=== PATIENT | male | born 1975 | race American Indian/Alaskan Native ===

== ENCOUNTER 2020-11-02 12:51 | Emergency (ER) | payer BC, SELFPAY ==
[2020-11-02 14:16] LABS: Basophils # (Auto) 0.1 K/mm3 (0.0-0.1); Basophils % (Auto) 1.9 % (0.0-1.8); Eosinophils % (Auto) 0.1 % (0.0-4.3); Hematocrit 47.1 % (35.5-45.6); Lymphocytes % (Auto) 21.4 % (13.4-35.0); Mean Corpuscular HGB Conc 34 % (32-34); Mean Corpuscular Volume 95 fl (84-94); Monocytes # (Auto) 0.3 K/mm3 (0.0-0.8); Monocytes % (Auto) 6.2 % (0.0-7.3); Platelet Count 176 K/mm3 (140-440); Red Blood Count 4.99 M/mm3 (3.65-5.03)
--- NOTE | 2020-11-02 14:19 | XRay Report ---
CHEST 2 VIEWS INDICATION / CLINICAL INFORMATION: CP, SOB, weakness. COMPARISON: None available. FINDINGS: SUPPORT DEVICES: None. HEART / MEDIASTINUM: No significant abnormality. LUNGS / PLEURA: There are vague right lower lobe opacities with otherwise clear lungs. No significant pleural effusion. No pneumothorax. ADDITIONAL FINDINGS: No significant additional findings. IMPRESSION: Right lower lobe opacities could represent pneumonia. Continued radiographic follow-up to resolution is recommended. Signer Name: Pedro Holguin MD Signed: 11/02/2020 2:15 PM Workstation Name: [id number]
[2020-11-02 14:29] LABS: Alanine Aminotransferase 90 units/L (7-56); Albumin 4.1 g/dL (3.9-5); BUN/Creatinine Ratio 12; Blood Urea Nitrogen 17 mg/dL (9-20); Calcium 9.1 mg/dL (8.4-10.2); Hemolysis Index 9
[2020-11-02] MEDS ORDERED: cefTRIAXone/NS 1 GM/50 ML 1 GM/50 ML BAG IV ONE (14:32)
[2020-11-02] MEDS ORDERED: SODIUM CHLORIDE 0.9% 1000 ML 1,000 ML IV ONE (14:32)
[2020-11-02] MEDS ORDERED: AZITHROMYCIN/NS 500 MG/250 ML 500 MG/250 ML BAG IV ONE (14:32)
--- NOTE | 2020-11-02 15:15 | Emergency Department Report ---
ED General Adult HPI - General Chief complaint: Weakness Stated complaint: WEAKNESS Time Seen by Provider: 11/02/20 13:23 Source: patient Mode of arrival: Ambulatory Limitations: No Limitations - History of Present Illness Initial comments: Patient is a 44-year-old male presents emergency room complaints of generalized weakness for a week. He states he also has decreased appetite. Patient states that he has chest tightness and occasional shortness of breath. He states occasionally he has a mild dry cough. He denies any fever, vomiting, diarrhea, leg swelling, sore throat, ear pain. He denies any known sick contacts. He states he did travel to [place] during October 14. He has not been vaccinated for COVID-19 and has not received COVID-19 testing. No past medical history. No allergies to medications. He is a non-smoker - Related Data Previous Rx's Medication Instructions Recorded Last Taken Type Azithromycin [Zithromax TAB] 250 mg PO QDAY 4 Days #4 tablet 11/02/20 Unknown Rx Allergies Allergy/AdvReac Type Severity Reaction Status Date / Time No Known Allergies Allergy Unverified 11/02/20 12:59 ED Review of Systems ROS: Stated complaint: WEAKNESS Other details as noted in HPI Comment: All other systems reviewed and negative ED Past Medical Hx - Past Medical History Previous Medical History?: No - Surgical History Past Surgical History?: No - Medications Home Medications: Home Medications Medication Instructions Recorded Confirmed Last Taken Type Azithromycin [Zithromax TAB] 250 mg PO QDAY 4 Days #4 tablet 11/02/20 Unknown Rx ED Physical Exam - General Limitations: No Limitations General appearance: alert, in no apparent distress - Head Head exam: Present: atraumatic, normocephalic - Eye Eye exam: Present: normal appearance - ENT ENT exam: Present: mucous membranes moist - Respiratory Respiratory exam: Present: normal lung sounds bilaterally. Absent: respiratory distress, wheezes, rales, rhonchi, stridor, chest wall tenderness, accessory muscle use, decreased breath sounds, prolonged expiratory - Cardiovascular Cardiovascular Exam: Present: regular rate, normal rhythm, normal heart sounds. Absent: systolic murmur, diastolic murmur, rubs, gallop - Neurological Exam Neurological exam: Present: alert, oriented X3 - Psychiatric Psychiatric exam: Present: normal affect, normal mood - Skin Skin exam: Present: warm, dry, intact ED Course Vital Signs 11/02/20 11/02/20 13:00 15:25 Temperature 99.2 F Pulse Rate 111 H 76 Respiratory 18 16 Rate Blood Pressure 122/81 129/84 [Right] O2 Sat by Pulse 97 100 Oximetry ED Medical Decision Making - Lab Data Result diagrams: 11/02/20 13:51 11/02/20 13:51 Lab Results 11/02/20 11/02/20 11/02/20 Range/Units 13:51 13:51 13:51 WBC 4.6 (4.5-11.0) K/mm3 RBC 4.99 (3.65-5.03) M/mm3 Hgb 16.0 H (11.8-15.2) gm/dl Hct 47.1 H (35.5-45.6) % MCV 95 H (84-94) fl MCH 32 (28-32) pg MCHC 34 (32-34) % RDW 13.0 L (13.2-15.2) % Plt Count 176 (140-440) K/mm3 Lymph % (Auto) 21.4 (13.4-35.0) % [place] % (Auto) 6.2 (0.0-7.3) % Eos % (Auto) 0.1 (0.0-4.3) % Baso % (Auto) 1.9 H (0.0-1.8) % Lymph # (Auto) 1.0 L (1.2-5.4) K/mm3 [place] # (Auto) 0.3 (0.0-0.8) K/mm3 Eos # (Auto) 0.0 (0.0-0.4) K/mm3 Baso # (Auto) 0.1 (0.0-0.1) K/mm3 Seg Neutrophils % 70.4 H (40.0-70.0) % Seg Neutrophils # 3.2 (1.8-7.7) K/mm3 D-Dimer 402.10 H (0-234) ng/mlDDU Sodium 130 L (137-145) mmol/L Potassium 4.4 (3.6-5.0) mmol/L Chloride 90.8 L (98-107) mmol/L Carbon Dioxide 27 (22-30) mmol/L Anion Gap 17 mmol/L BUN 17 (9-20) mg/dL Creatinine 1.4 H (0.8-1.3) mg/dL Estimated GFR 55 ml/min BUN/Creatinine Ratio 12 % Glucose 96 (75-100) mg/dL Calcium 9.1 (8.4-10.2) mg/dL Total Bilirubin 0.70 (0.1-1.2) mg/dL AST 121 H (5-40) units/L ALT 90 H (7-56) units/L Alkaline Phosphatase 58 (35-129) units/L Total Creatine Kinase 2662 H (55-170) units/L Troponin T < 0.010 (0.00-0.029) ng/mL NT-Pro-B Natriuret Pep 11.67 (0-450) pg/mL Total Protein 7.4 (6.3-8.2) g/dL Albumin 4.1 (3.9-5) g/dL Albumin/Globulin Ratio 1.2 % Vital Signs 11/02/20 11/02/20 13:00 15:25 Temperature 99.2 F Pulse Rate 111 H 76 Respiratory 18 16 Rate Blood Pressure 122/81 129/84 [Right] O2 Sat by Pulse 97 100 Oximetry - Radiology Data Radiology results: report reviewed Ordering Physician: RYAN HUDDLESTON Date of Service: 11/02/20 Procedure(s): XR chest routine 2V Accession Number(s): [id number] cc: RYAN HUDDLESTON Fluoro Time In Minutes: CHEST 2 VIEWS INDICATION / CLINICAL INFORMATION: CP, SOB, weakness. COMPARISON: None available. FINDINGS: SUPPORT DEVICES: None. HEART / MEDIASTINUM: No significant abnormality. LUNGS / PLEURA: There are vague right lower lobe opacities with otherwise clear lungs. No significant pleural effusion. No pneumothorax. ADDITIONAL FINDINGS: No significant additional findings. IMPRESSION: Right lower lobe opacities could represent pneumonia. Continued radiographic follow-up to resolution is recommended. Signer Name: Pedro Holguin MD Signed: 11/02/2020 2:15 PM Workstation Name: [id number] Transcribed By: RUDY Dictated By: Pedro Holguin MD Electronically Authenticated By: Pedro Holguin MD Signed Date/Time: 11/02/201414 DD/ 13 TD/TT: Ordering Physician: RYAN HUDDLESTON Date of Service: 11/02/20 Procedure(s): CT angio chest Accession Number(s): [id number] cc: RYAN HUDDLESTON CTA CHEST WITH IV CONTRAST INDICATION: Chest tightness, shortness of breath, elevated d-dimer. TECHNIQUE: Axial CT images were obtained through the chest after injection of 100 cc Omnipaque 350 IV contrast. 3 plane MIP reconstructions were produced. All CT scans at this location are performed using CT dose reduction for ALARA by means of automated exposure control. COMPARISON: 2 views of the chest performed today. FINDINGS: PULMONARY ARTERIES: No pulmonary emboli. AORTA AND ARTERIES: No significant abnormality. HEART: No significant abnormality. MEDIASTINUM: No significant abnormality. LUNGS: Consolidations are noted throughout the right lower lobe and to a lesser extent along the right middle and left upper lobes. No suspicious nodule or mass. There is mild bibasilar atelectasis. No pneumothorax or pleural effusion. ADDITIONAL FINDINGS: None. UPPER ABDOMEN: No acute findings. BONES: No significant osseous abnormality. IMPRESSION: 1. No CT evidence for pulmonary embolism. 2. Suspected bilateral pneumonia. Continued radiographic follow-up to resolution is recommended. Signer Name: Pedro Holguin MD Signed: 11/02/2020 4:48 PM Workstation Name: [id number] Transcribed By: [place] Dictated By: Pedro Holguin MD Electronically Authenticated By: Pedro Holguin MD Signed Date/Time: 11/02/201647 DD/ 44 TD/TT: - Medical Decision Making Patient is a 44-year-old male presents emergency room complaints of generalized weakness for a week. He states he also has decreased appetite. Patient states that he has chest tightness and occasional shortness of breath. He states occasionally he has a mild dry cough. He denies any fever, vomiting, diarrhea, leg swelling, sore throat, ear pain. He denies any known sick contacts. He states he did travel to [place] during October 14. He has not been vaccinated for COVID-19 and has not received COVID-19 testing. No past medical history. No allergies to medications. He is a non-smoker. Initial vitals with tachycardia which improved upon repeat. Lab significant for elevated D-dimer, dehydration, mild DIONE, mildly elevated AST and ALT, elevated CK. Patient given 1 L normal saline, ceftriaxone, Rocephin. Chest x-ray Right lower lobe opacities could represent pneumonia. Continued radiographic follow-up to resolution is recommended. CT angio chest: 1. No CT evidence for pulmonary embolism. 2. Kalyani pected bilateral pneumonia. Continued radiographic follow-up to resolution is recommended. Symptoms likely related to COVID-19 pneumonia. Discussed all results with patient and answer questions. Discussed case with Dr. Era Moctezuma, ER attending who advised that patient can follow-up outpatient and does not need any further testing or treatment for his elevated CK. Patient given prescription for azithromycin. Discussed possibility of COVID-19 with patient, discussed return precautions, discussed outpatient testing, discussed self quarantine. Advised patient please take medication as prescribed. Please increase your fluid intake over the next several days. Follow-up with a primary care doctor for reexamination. Return to emergency room immediately for any new or worsening symptoms including but not limited to difficulty breathing, shortness of breath, severe chest pain, unable to tolerate by mouth intake, etc. Please self quarantine for 10 days from the onset of your symptoms. Please do not go out in public. If you are around others at home please wear a mask. If you need to cough or sneeze please do so in a napkin and immediately throw it away and immediately wash your hands. Wash your hands frequently. Wipe everything down. Recommend for you to get COVID-19 testing, may have this done at primary care doctor, health department, [facility], etc. Critical care attestation.: If time is entered above; I have spent that time in minutes in the direct care of this critically ill patient, excluding procedure time. ED Disposition Clinical Impression: Infection due to COVID-19 virus variant of concern, Dehydration Bilateral pneumonia Qualifiers: Pneumonia type: due to unspecified organism Lung location: unspecified part of lung Qualified Code(s): J18.9 - Pneumonia, unspecified organism Disposition: DC-01 TO HOME OR SELFCARE Is pt being admited?: No Does the pt Need Aspirin: No Condition: Stable Instructions: COVID-19, Community-Acquired Pneumonia, Adult, Bacterial Pneumo kody (ED) Additional Instructions: please take medication as prescribed. Please increase your fluid intake over the next several days. Follow-up with a primary care doctor for reexamination. Return to emergency room immediately for any new or worsening symptoms including but not limited to difficulty breathing, shortness of breath, severe chest pain, unable to tolerate by mouth intake, etc. Please self quarantine for 10 days from the onset of your symptoms. Please do not go out in public. If you are around others at home please wear a mask. If you need to cough or sneeze please do so in a napkin and immediately throw it away and immediately wash your hands. Wash your hands frequently. Wipe everything down. Recommend for you to get COVID-19 testing, may have this done at primary care doctor, health department, [facility], etc. Prescriptions: Azithromycin [Zithromax TAB] 250 mg PO QDAY 4 Days #4 tablet Referrals: PRIMARY CARE, [Primary Care Provider] - 2-3 Days Time of Disposition: 17:04 Print Language: POLISH
[2020-11-02 15:28] VITALS: BP 129/84
--- NOTE | 2020-11-02 16:52 | Cat Scan Report ---
CTA CHEST WITH IV CONTRAST INDICATION: Chest tightness, shortness of breath, elevated d-dimer. TECHNIQUE: Axial CT images were obtained through the chest after injection of 100 cc Omnipaque 350 IV contrast. 3 plane MIP reconstructions were produced. All CT scans at this location are performed using CT dose reduction for ALARA by means of automated exposure control. COMPARISON: 2 views of the chest performed today. FINDINGS: PULMONARY ARTERIES: No pulmonary emboli. AORTA AND ARTERIES: No significant abnormality. HEART: No significant abnormality. MEDIASTINUM: No significant abnormality. LUNGS: Consolidations are noted throughout the right lower lobe and to a lesser extent along the righ t middle and left upper lobes. No suspicious nodule or mass. There is mild bibasilar atelectasis. No pneumothorax or pleural effusion. ADDITIONAL FINDINGS: None. UPPER ABDOMEN: No acute findings. BONES: No significant osseous abnormality. IMPRESSION: 1. No CT evidence for pulmonary embolism. 2. Suspected bilateral pneumonia. Continued radiographic follow-up to resolution is recommended. Signer Name: Pedro Holguin MD Signed: 11/02/2020 4:48 PM Workstation Name: [id number]
== END 2020-11-02 17:22 | disposition home or self-care (01) ==
LOC: ED 12:51
DX: U07.1 COVID-19 (principal); J18.9 Pneumonia, unspecified organism; E86.0 Dehydration; Z79.899 Other long term (current) drug therapy
CPT/HCPCS: 36415; 71046; 71275; 80053; 82550; 83880; 84484; 85025; 85379; 96365; 96367; 99284; J0456; J0696; J7030; Q9967